=== PATIENT | female | born 1955 | race Caucasian/White ===

== ENCOUNTER 2018-11-10 08:17 | Outpatient (CLI) | payer OTHER ==
--- NOTE | 2018-11-10 09:18 | BD ---
DEXA BONE DENSITY STUDY: HISTORY: Postmenopausal. FINDINGS: Lumbar Spine: BMD (g/cm2) L1 0.905 T-Score: -0.8 L2 0.990 T-Score: -0.3 L3 1.043 T-Score: -0.4 L4 1.176 T-Score: +1.0 L1-L4 1.037 T-Score: -0.1 Femoral Neck: 0.621 T-Score: -2.1 Total Femur: 0.794 T-Score: -1.2 Impression: Osteopenia of the left femoral neck. Bone mineral density in the lumbar spine is within normal limit s. POS: [facility]
== END 2018-11-10 08:18 | disposition home or self-care (01) ==
LOC: BICMAMMO 08:17
PROVIDERS: ATTEND Internal Medicine Rheumatology
DX: M81.0 Age-related osteoporosis without current pathological fracture (principal); M85.852 Other specified disorders of bone density and structure, left thigh
CPT/HCPCS: 77080

== ENCOUNTER 2023-01-04 15:25 | Outpatient (CLI) | payer MEDICARE | END 2023-01-04 15:26 | disposition home or self-care (01) | LOC: TBSIIMAG 15:25 | PROVIDERS: ATTEND Neurological Surgery | DX: M48.062 Spinal stenosis, lumbar region with neurogenic claudication (principal); M47.816 Spondylosis without myelopathy or radiculopathy, lumbar region; M41.86 Other forms of scoliosis, lumbar region; M51.36 Other intervertebral disc degeneration, lumbar region | CPT/HCPCS: 72120 ==

== ENCOUNTER 2024-02-10 15:47 | Outpatient (CLI) | payer MEDICARE | END 2024-02-10 15:48 | disposition home or self-care (01) | LOC: SCSRAD 15:47 | PROVIDERS: ATTEND Nurse Practitioner Family | DX: R05.9 Cough, unspecified (principal) | CPT/HCPCS: 71046 ==